=== PATIENT | female | born 1945 | race African-American/Black ===

== ENCOUNTER 2023-06-14 13:11 | Emergency (ER) | payer MEDICARE ==
[~2023-06-14] VITALS: Ht 165.1 cm; Wt 86.0 kg
[~2023-06-14 13:11] MED LIST: ASPIRIN EC81 MG PO; ASPIRIN LOW81 M1 PO; LISINOPRIL10 MG PO
[2023-06-14 13:34] VITALS: BP 174/88
[2023-06-14 13:45] VITALS: BP 155/88
[2023-06-14 14:00] VITALS: BP 157/92
[2023-06-14 14:15] VITALS: BP 143/87
[2023-06-14] MEDS ORDERED: PREDNISONE10 MG PO (16:20)
[2023-06-14] MEDS ORDERED: METHOCARBAMOL500 MG PO (16:20)
[2023-06-14] MEDS ORDERED: NAPROXEN500 MG PO (16:20)
[2023-06-14 16:31] VITALS: BP 143/87
== END 2023-06-14 16:46 | disposition home or self-care (01) ==
LOC: ED 13:11
DX: S39.012A Strain of muscle, fascia and tendon of lower back, initial encounter (principal); X58.XXXA Exposure to other specified factors, initial encounter

== ENCOUNTER 2023-11-23 20:08 | Emergency (ER) | payer MEDICARE ==
[~2023-11-23] VITALS: Ht 165.1 cm; Wt 85.0 kg
[~2023-11-23 20:08] MED LIST changes: +METHOCARBAMOL500 MG PO; +NAPROXEN500 MG PO; +PREDNISONE10 MG PO
[2023-11-23 20:38] VITALS: BP 127/104
[2023-11-23] MEDS ORDERED: CYCLOBENZAPRINE HCL 5 MG TAB PO ONE (20:40)
[2023-11-23] MEDS ORDERED: Acetaminophen 300 MG/Codeine 30 MG/COMBO PO ONE (20:40)
[2023-11-23] MEDS ORDERED: KETOROLAC TROMETHAMINE 30 MG/ML SDV IM ONE (20:40)
[2023-11-23] MEDS ORDERED: PEPCID40 MG PO (21:20)
[2023-11-23 21:21] VITALS: BP 131/72
[2023-11-23] MEDS ORDERED: MONTELUKAST SOD10 MG PO (21:21)
[2023-11-23] MEDS ORDERED: OXYBUTYNIN CHLOR5 M2 PO (21:21)
[2023-11-23] MEDS ORDERED: ALDACTONE25 MG PO (21:22)
[2023-11-23] MEDS ORDERED: CRESTOR10 MG PO (21:22)
[2023-11-23] MEDS ORDERED: [UNRECOGNIZED DRUG - OTHER] (21:23)
[2023-11-23] MEDS ORDERED: [UNRECOGNIZED DRUG - OTHER] (21:23)
[2023-11-23] MEDS ORDERED: VITAMIN B-121000 MCG PO (21:24)
[2023-11-23] MEDS ORDERED: [UNRECOGNIZED DRUG - OTHER] (21:24)
[2023-11-23 21:31] VITALS: BP 133/73
[2023-11-23] MEDS ORDERED: TORADOL PO (21:46)
[2023-11-23 21:53] VITALS: BP 133/73
== END 2023-11-23 22:09 | disposition home or self-care (01) ==
LOC: ED 20:08
DX: S16.1XXA Strain of muscle, fascia and tendon at neck level, initial encounter (principal); M47.812 Spondylosis without myelopathy or radiculopathy, cervical region; I10 Essential (primary) hypertension; X58.XXXA Exposure to other specified factors, initial encounter; Z86.73 Personal history of transient ischemic attack (TIA), and cerebral infarction without residual deficits; Z79.82 Long term (current) use of aspirin